=== PATIENT | male | born 1955 | race Asian ===

== ENCOUNTER 2022-12-01 10:09 | Emergency (ER) | payer OTHER ==
[~2022-12-01] VITALS: Ht 165.1 cm; Wt 94.5 kg
[~2022-12-01 10:09] MED LIST: METF-1211 PO; SIMV5TAB59 PO
[2022-12-01] MEDS ORDERED: METO25 PO (10:14)
[2022-12-01] MEDS ORDERED: AMLO2.5T96 PO (10:14)
[2022-12-01] MEDS ORDERED: ATOR10TA PO (10:14)
[2022-12-01] MEDS ORDERED: ASPI-1450 PO (10:14)
[2022-12-01] MEDS ORDERED: LOSA-381 PO (10:14)
[2022-12-01 10:46] LABS: HEMATOCRIT 45.4 % (41-53); HEMOGLOBIN 15.1 g/dL (13.5-17.5); LYMPHOCYTES # (AUTO) 1.1 K/uL (1.0-4.8); LYMPHOCYTES % (AUTO) 14.3 % (22.0-44.0); MEAN CORPUSCULAR HEMOGLOBIN 30.5 pg (26.0-34.0); MEAN CORPUSCULAR HGB CONC 33.3 G/dL (31.0-37.0); MEAN CORPUSCULAR VOLUME 92 fL (80-100); MONOCYTES # (AUTO) 0.8 K/uL (0.1-1.0); MONOCYTES % (AUTO) 10.6 % (2.0-9.0); NEUTROPHILS % (AUTO) 67.1 % (40.0-70.0); PLATELET COUNT (AUTO) 239 K/uL (150-450); RED BLOOD CELL COUNT(AUTO) 4.95 MIL/uL (4.50-5.90); RED CELL DISTRIBUTION WIDTH 13.1 % (11.5-14.5); WHITE BLOOD COUNT (AUTO) 7.5 K/uL (4.5-11.0)
[2022-12-01 10:59] LABS: ANION GAP 12 mmol/L (8-16); CARBON DIOXIDE 23 mmol/L (22-29); CHLORIDE 103 mmol/L (98-107); CREATININE 0.88 mg/dL (0.60-1.30); GLOMERULAR FILTR. RATE CALC > 60 mL/min (>60); GLUCOSE,RANDOM 193 mg/dL (70-110); POTASSIUM 3.7 mmol/L (3.5-5.1); SODIUM SERUM 138 mmol/L (136-145); UREA NITROGEN, BLOOD 18 mg/dL (7-18)
[2022-12-01 11:05] LABS: ALANINE AMINOTRANSFERASE 42 U/L (12-78); ALBUMIN 3.3 g/dL (3.4-5.0); ALKALINE PHOSPHATASE 81 U/L (46-116); ASPARTATE AMINOTRANSFERASE 22 U/L (15-37); BILIRUBIN,TOTAL 0.3 mg/dL (0.1-1.0)
[2022-12-01 11:06] LABS: TROPONIN I-HIGH SENSITIVITY 52 ng/L (<76)
[2022-12-01 12:07] LABS: ANION GAP 9 mmol/L (8-16); CALCIUM, TOTAL 7.9 mg/dL (8.8-10.5); CARBON DIOXIDE 25 mmol/L (22-29); CHLORIDE 104 mmol/L (98-107); CREATININE 0.89 mg/dL (0.60-1.30); GLOMERULAR FILTR. RATE CALC > 60 mL/min (>60); GLUCOSE,RANDOM 140 mg/dL (70-110); POTASSIUM 3.7 mmol/L (3.5-5.1); SODIUM SERUM 138 mmol/L (136-145); UREA NITROGEN, BLOOD 17 mg/dL (7-18)
[2022-12-01 12:10] LABS: PHOSPHORUS 2.7 mg/dL (2.5-4.9)
[2022-12-01 12:14] LABS: TROPONIN I-HIGH SENSITIVITY 39 ng/L (<76)
[2022-12-01 13:23] LABS: TROPONIN I-HIGH SENSITIVITY 43 ng/L (<76)
[2022-12-01 13:42] VITALS: BP 145/78; PULSE 48; RESP 18; TEMP 98.2
== END 2022-12-01 13:58 | disposition home or self-care (01) ==
LOC: EMS 10:23
DX: R94.31 Abnormal electrocardiogram [ECG] [EKG] (principal); E11.9 Type 2 diabetes mellitus without complications; E78.00 Pure hypercholesterolemia, unspecified; I10 Essential (primary) hypertension; H54.40 Blindness, one eye, unspecified eye
CPT/HCPCS: 80048; 80053; 82962; 83735; 83880; 84100; 84484; 85025; 93005; 99284